=== PATIENT | male | born 1950 | race Caucasian/White ===

== ENCOUNTER → 2016-05-04 | Outpatient (CLI) | payer BC ==
[~2016-05-04] MED LIST: ASPI81TA28 PO; CHOL400T PO; IRBE1TAB48 PO; MULT-506 PO; NRV/5 PO
== END | disposition home or self-care (01) ==
LOC: C.PATHSPEC 12:05
PROVIDERS: ATTEND Urology
DX: R97.20 Elevated prostate specific antigen [PSA] (principal)

== ENCOUNTER → 2016-12-02 | Outpatient (CLI) | payer BC ==
[~2016-12-02] MED LIST changes: -ASPI81TA28 PO; -CHOL400T PO; -MULT-506 PO
[2016-12-02 11:02] LABS: BASO % 0.4 %; BASO ABS # 0.02 K/uL (0-0.2); COMPLETE YES; EOS % 9.4 %; HEMATOCRIT 45.5 % (42-52); IG% 0.4 %; LYMPH % 45.8 %; LYMPH ABS # 2.14 K/uL (1.2-3.4); MEAN CORPUSCULAR HEMOGLOBIN 32.7 pg (25-34); MEAN CORPUSCULAR HGB CONC 37.1 g/dl (32-36); MONO % 8.4 %; NEUT % 35.6 %; PLATELET COUNT 150 K/uL (130-400); RED BLOOD COUNT 5.17 M/uL (4.7-6.1); WHITE BLOOD COUNT 4.67 K/uL (4.8-10.8)
[2016-12-02 11:40] LABS: ALT/SGPT 103 U/L (12-78); AST/SGOT 41 U/L (15-37); BLOOD UREA NITROGEN 20 mg/dl (7-18); BUN/CREATININE RATIO 17.9 (10-20); CARBON DIOXIDE 24 mmol/L (21-32); CHLORIDE 108 mmol/L (98-107); GLUCOSE 108 mg/dl (70-99); POTASSIUM 4.3 mmol/L (3.5-5.1); SODIUM 138 mmol/L (136-145)
[2016-12-02 11:45] LABS: ALB/GLOB RATIO 1.5 (0.9-2); ALKALINE PHOSPHATASE 63 U/L (45-117); CHOLESTEROL 146 mg/dl (0-200); CHOLESTEROL/HDL RATIO 4.3; HDL CHOLESTEROL 34 mg/dl; LDL CHOLESTEROL CALCULATED 78 mg/dl; TRIGLYCERIDES 171 mg/dl (0-150); VERY LOW DENSITY LIPOPROT CALC 34 mg/dl
[2016-12-02 12:36] LABS: ESTIMATED AVERAGE GLUCOSE 111 mg/dl; HA1C FLAG Normal (Normal)
== END | disposition home or self-care (01) ==
LOC: C.LABBC 08:23
PROVIDERS: ATTEND Internal Medicine
DX: C61 Malignant neoplasm of prostate (principal); Z11.59 Encounter for screening for other viral diseases; E88.81 Metabolic syndrome and other insulin resistance

== ENCOUNTER → 2016-12-09 | Outpatient (CLI) | payer BC | END | disposition home or self-care (01) | LOC: C.LABBC 08:12 | PROVIDERS: ATTEND Internal Medicine | DX: R79.89 Other specified abnormal findings of blood chemistry (principal) ==

== ENCOUNTER → 2016-12-13 | Outpatient (CLI) | payer BC | END | disposition home or self-care (01) | LOC: C.LABBC 08:16 | PROVIDERS: ATTEND Internal Medicine | DX: R79.89 Other specified abnormal findings of blood chemistry (principal) ==

== ENCOUNTER → 2016-12-17 | Outpatient (CLI) | payer BC ==
--- NOTE | 2016-12-17 10:45 | DIAGNOSTIC IMAGING REPORT ---
(LIVER) ABDOMEN LIMITED CLINICAL HISTORY: R79.89 Abnormal liver function [id number] abnormal liver function tests TECHNIQUE: Ultrasound COMPARISON STUDY: None FINDINGS: Fatty infiltration of liver. Normal gallbladder. No shadowing gallstones. Common bile duct 5 mm. Unremarkable pancreas. Right kidney is negative for hydronephrosis. IMPRESSION: Fatty infiltration of liver. Otherwise negative study. The above report was generated using voice recognition software. It may contain grammatical, syntax or spelling errors. Electronically signed by: Erick Marin M.D. 12/17/2016 10:44 AM Dictated Date/Time: 12/17/2016 10:43 AM
== END | disposition home or self-care (01) ==
LOC: C.ULTRBC 08:41
PROVIDERS: ATTEND Internal Medicine
DX: R79.89 Other specified abnormal findings of blood chemistry (principal)

== ENCOUNTER → 2017-01-24 | Outpatient (CLI) | payer BC ==
[2017-01-24 11:29] LABS: BLOOD UREA NITROGEN 17 mg/dl (7-18); BUN/CREATININE RATIO 16.5 (10-20); CREATININE 1.03 mg/dl (0.60-1.40)
== END | disposition home or self-care (01) ==
LOC: C.LABBC 08:44
PROVIDERS: ATTEND Urology
DX: C61 Malignant neoplasm of prostate (principal)

== ENCOUNTER → 2017-06-21 | Outpatient (CLI) | payer BC | END | disposition home or self-care (01) | LOC: C.PATHSPEC 17:58 | PROVIDERS: ATTEND Urology | DX: C61 Malignant neoplasm of prostate (principal); N42.32 Atypical small acinar proliferation of prostate; R97.20 Elevated prostate specific antigen [PSA] ==

== ENCOUNTER 2019-01-30 06:20 | Inpatient (IN) ==
--- NOTE | 2019-01-22 13:15 | PAT Medication Instructions ---
Medication Instructions Date of Service January 22, 2019 Home Medications alfuzosin 10 mg PO QDD amlodipine 5 mg PO QAM aspirin [Aspirin Low Dose] 81 mg PO QAM cholecalciferol (vitamin D3) [Vitamin D3] 5,000 unit PO QAM irbesartan 150 mg PO QAM ASK your prescriber and surgeon aspirin [Aspirin Low Dose] 81 mg PO QAM DO NOT take the morning of surgery cholecalciferol (vitamin D3) [Vitamin D3] 5,000 unit PO QAM irbesartan 150 mg PO QAM Take morning of surgery With a small sip of water, OTHERWISE NOTHING TO EAT OR DRINK AFTER MIDNIGHT: amlodipine 5 mg PO QAM Take evening before surgery alfuzosin 10 mg PO QDD Other Notes If you have any questions please call us at [phone] or [phone] or [phone] or [phone]
--- NOTE | 2019-01-23 08:23 | Anesthesiology Consultation ---
Date of Service January 23, 2019 Assessment & Plan (1) Encounter for pre-operative examination: Chart Review Chart Review: Pending: Refer to Additional Notes / Consult section (pending preop testing (labs, EKG, CXR)) and Patient seen in Pre Admission Testing Teaching & Discussion Pre-Anesthesia Teaching/Discussion Notes: Instructed NPO after midnight before surgery,except medications with 15 cc of water. Medication instructions provid ed according to the PAT guidelines. History Surgery Operation Date: 01/30/19 10:40 Proposed Procedures p Right Total Knee Arthroplasty - Robe Torrez MD Height/Weight Height: 5 ft 10 in Weight: 112.8 kg Allergies Allergy/AdvReac Type Severity Reaction Status Date / Time KAREN INHIBATORS Allergy Unknown RASH, Uncoded 01/16/19 10:25 "TICKLE IN THROAT" Medications Home Medications Medication Instructions Recorded Confirmed Last Taken alfuzosin 10 mg PO QDD 01/16/19 01/16/19 Unknown amlodipine 5 mg PO QAM 01/16/19 01/16/19 Unknown aspirin [Aspirin Low Dose] 81 mg PO QAM 01/16/19 01/16/19 Unknown cholecalciferol (vitamin D3) 5,000 unit PO QAM 01/16/19 01/16/19 Unknown [Vitamin D3] irbesartan 150 mg PO QAM 01/16/19 01/16/19 Unknown Past Medical History Medical History Hypertension Obesity Osteoarthritis Prostate cancer under surveillance Urinary retention Exercise / Class Metabolic Activity III < 4 Walking/Shop/Light housework Past Surgical History Surgical History Hx of anterior cruciate ligament surgery BOTH KNEES Hx of arthroscopic knee surgery RIGHT Hx of colonoscopy Hx of prostate biopsy X2 Hx of tonsillectomy Past Anesthesia History No Hx of Anesthesia Complications and No Family Hx of Anesthesia Complications History of PONV No Hx of PONV and Hx of Motion Sickness (occasional) Social History Smoking Status: Never smoker Do You Dip or Chew Tobacco: No Hx Alcohol Use: Yes alcohol intake frequency: holidays/special occasions only Hx Substance Use: No Review of Systems URI symptoms significantly improved. Patient denies chest pain, shortness of breath, reflux, wheezing, palpitations. Physical Exam Vital Signs VITALS BP 133/82 P 73 TEMP 98.2 SP02 95%RA RESP 16 PHYSICAL Full neck and c-spine range of motion. Full TMJ range of motion. TMD 3.5 finger breaths Mallampati Score 3 Dentition: intact, crowns on molars Lungs: clear throughout to auscultation Cardiac: regular rate and rhythm, no murmurs noted Spine: normal Carotid arteries: negative bruit Extremities: no edema
--- NOTE | 2019-01-23 08:42 | XRay Report ---
XR chest Pre-admission PA/Lat CLINICAL HISTORY: Preoperative evaluation. COMPARISON STUDY: No previous studies for comparison. FINDINGS: Lung volumes are at the lower limits of normal. Lungs are clear. There is no pneumothorax o r pleural effusion. Mild cardiomegaly is noted. Mediastinal contours are normal. There is no evidence for pulmonary edema. Incidental note is made of mild thoracolumbar spine scoliosis. IMPRESSION: 1. No acute cardiopulmonary findings. 2. Mild cardiomegaly. Electronically signed by: Regis Linn M.D. 01/23/2019 8:41 AM
[2019-01-23 10:53] LABS: Basophils # (auto) 0.03 K/uL (0-0.2); Basophils % (auto) 0.3 %; Eosinophils # (auto) 0.55 K/uL (0-0.5); Eosinophils % (auto) 5.5 %; Hematocrit (blood only) 44.6 % (42-52); Hemoglobin 16.2 g/dL (14.0-18.0); Immature Granulocytes # (auto) 0.02 K/uL (0.00-0.02); Immature Granulocytes % (auto) 0.2 %; Lymphocytes # (auto) 3.61 K/uL (1.2-3.4); Lymphocytes % (auto) 36.2 %; Mean Corpuscular Hemoglobin 32.1 pg (25-34); Mean Corpuscular Hgb Conc 36.3 g/dL (32-36); Mean Corpuscular Volume 88.3 fL (80-100); Mean Platelet Volume 9.6 fL (7.4-10.4); Monocytes # (auto) 0.79 K/uL (0.11-0.59); Monocytes % (auto) 7.9 %; Neutrophils # (auto) 4.97 K/uL (1.4-6.5); Neutrophils % (auto) 49.9 %; Platelet Count 170 K/uL (130-400); RDW Coefficient of Variation 12.8 % (11.5-14.5); Red Blood Count 5.05 M/uL (4.7-6.1); White Blood Count 9.97 K/uL (4.8-10.8)
[2019-01-23 11:07] LABS: BUN Creatinine Ratio 23.2 (10-20); C Reactive Protein 1.89 mg/dl (0-0.29); Creatinine Clr Calc Pharmacy 87.9 ml/min; Est GFR (African American) 86.3; Est GFR (Non-African American) 74.5; Partial Thromboplastin Time 26.8 Seconds (21.0-31.0); Potassium 4.3 mmol/L (3.5-5.1); Prothrombin Time 10.3 Seconds (9.0-12.0)
--- NOTE | 2019-01-24 22:27 | History and Physical Report ---
DATE OF ADMISSION: 01/30/2019 CHIEF COMPLAINT: Right knee pain, discomfort and swelling. HISTORY OF PRESENT ILLNESS: This is a 68-year-old gentleman who is well known to me from previously treating him for some right knee DJD and postsurgical arthritis over the past 4 years. This all dates back to injuries many years ago. Both of his knees reconstructed with ACL reconstruction with the right knee done in 1993 and the left one done in 1997, all was done in [facility]. He did have a history of previous open knee surgery in the right side before that. He has continued to have persistent progressive right knee pain and discomfort. It has aggravated and it takes a couple weeks for him to calm down. It swells up regularly. He describes global pain. The more he walks, the more it hurts. He has been through extensive conservative treatment including steroid shots and viscosupplementation, which have not been helpful lately. He now would like to have his right knee fixed. PAST MEDICAL HISTORY: 1. Hypertension. 2. Sleep apnea. 3. Obesity with BMI of 35.7. 4. BPH/prostate cancer. PAST SURGICAL HISTORY: Previous surgeries include: 1. Right knee open meniscectomy prior to 1993. 2. Right knee ACL reconstruction with bone patella tendon bone autograft in 1993. 3. Left knee ACL reconstruction in 1997. ALLERGIES: None. CURRENT MEDICINES: Include: 1. Amlodipine 5 mg. 2. Irbesartan 150 mg a day. SOCIAL HISTORY: A 68-year-old male. He is . No significant smoking history. One drink per week. FAMILY HISTORY: Noncontributory. REVIEW OF HISTORY: Negative for diabetes, neurologic problems, vascular problems or bleeding disorders. Denies any chest pain or shortness of breath. No history of DVT or PE. No known bleeding problems. PHYSICAL EXAMINATION: GENERAL: Reveals a healthy, pleasant, middle-aged male. Looks to be in pretty good health. HEENT: Benign. NECK: Supple, no lymphadenopathy. LUNGS: Clear to auscultation. HEART: Regular rate and rhythm. ABDOMEN: Soft, nontender, nondistended. EXTREMITIES: Grossly neurovascularly intact except as follows: Examination of the right knee reveals the patient walks with a slight bit of a limp. He has got well-healed incisions around his right knee from previous surgeries. He has got a small to moderate sized knee effusion. Range of motion about 10 degrees short of full extension and about 110 degrees of flexion. There is no clinical instability. His knee is pretty stiff. No pain with hip motion. X-RAYS: X-rays of the right knee reviewed. It shows evidence of ACL reconstruction with interference screws proximally and distally. He has got tricompartment disease diffusely. He does have complete loss of his lateral joint space. He has got osteophytes in all 3 compartments. ASSESSMENT: A 68-year-old male with a history of multiple knee surgeries in the past with advanced right knee tricompartment DJD. He has failed conservative treatment and would like to have his right knee fixed. PLAN: We will take him to the operating room and do right total knee replacement. We may need to remove some of the hardware. The risks and benefits of total knee replacement were explained to the patient including but not limited to DVT, PE, , infection, neurological injury, vascular injury, bleeding problem, pain, limited range of motion, stiffness, failure to relieve symptoms, incomplete relief of symptoms, need for further surgery in the future, fracture, leg length inequality, nerve palsy, etc. The patient understands and desires to proceed. Informed consent was obtained. Due to his history of multiple surgeries, we will likely put some vancomycin in cement. We may have to remove some interference screws and will be prepared to do that. As far as discharge plans, he is planning to be discharged home using [facility] home health program.
[~2019-01-30 06:20] MED LIST changes: +ACETAMINOPHEN 500 MG TAB PO SCH; +BUPIVACAINE LIPOSOME/PF 266 MG, BUPIVACAINE/EPINEPHRINE 50 ML, SODIUM CHLORIDE 0.9% 30 ... INFIL SCH; +CEFAZOLIN 2000MG 2,000 MG/15 ML SYR IV SCH; +FAMOTIDINE 20 MG TAB PO SCH; +GABAPENTIN 300 MG CAP PO SCH; -IRBE1TAB48 PO; +LR 500ML BOLUS, THEN 15ML/HR IV SCH; +LR 60ML/HR IV SCH; +METOCLOPRAMIDE HCL 10 MG TABLET PO SCH; -NRV/5 PO; +SCOPOLAMINE 1.5 MG TDSY TD SCH
[2019-01-30] MEDS ORDERED: TRANEXAMIC ACID 1,000 MG **IV Intra-op IV SCH (06:30)
[2019-01-30] MEDS ORDERED: BUPIVACAINE 0.5 % 5 MG/1 ML PF 10ML VIAL ONE (06:32)
[2019-01-30] MEDS ORDERED: ROPIVACAINE 0.5% 5 MG/ML 30 ML VIAL ONE (06:32)
--- NOTE | 2019-01-30 06:51 | History & Physical Bridge Note ---
Date of Service January 30, 2019 History & Physical Bridge Note I have examined the patient, reviewed the History & Physical and in the interval since the performance of the History & Physical I have noted the following changes of clinical significance: no changes noted
[2019-01-30] MEDS ORDERED: fentaNYL citrate 100 MCG/2 ML VIAL ONE (07:31)
[2019-01-30] MEDS ORDERED: MIDAZOLAM HCL 1 MG/ML 2ML VIAL ONE ×2 (07:31→09:30)
[2019-01-30] MEDS ORDERED: HYDROmorphone INJ 1 MG/ML SYRINGE IV PRN (08:19)
[2019-01-30] MEDS ORDERED: ePHEDrine sulfate 50 MG/ML AMP IV PRN (08:19)
[2019-01-30] MEDS ORDERED: ATROPINE SULFATE 0.1 MG/ML 10ML SYR IV PRN (08:19)
[2019-01-30] MEDS ORDERED: KETOROLAC 30 MG/ML VIAL IV PRN (08:19)
[2019-01-30] MEDS ORDERED: ONDANSETRON INJ 2 MG/ML 2 ML VIAL IV PRN ×2 (08:19→11:55)
[2019-01-30] MEDS ORDERED: BUPIVACAINE LIPOSOME 1.3% 266 MG/20 ML VIAL ONE (08:40)
[2019-01-30] MEDS ORDERED: BACITRACIN INJ 50,000 UNIT VIAL ONE (08:40)
[2019-01-30] MEDS ORDERED: SODIUM CHLORIDE 0.9% PF 50 ML VIAL ONE (08:40)
[2019-01-30] MEDS ORDERED: BUPIVACAINE/EPINEPHRINE 0.25% 1:200,000 30 ML VIAL ONE (08:40)
[2019-01-30] MEDS ORDERED: VANCOMYCIN HCL 1000MG/20ML VIAL ONE (09:01)
[2019-01-30] MEDS ORDERED: KETAMINE HCL INJ 50 MG/ML 10 ML VIAL ONE (09:19)
[2019-01-30] MEDS ORDERED: ONDANSETRON INJ 2 MG/ML 2 ML VIAL ONE (09:23)
[2019-01-30] MEDS ORDERED: PROPOFOL IV EMULSION 10 MG/ML 20 ML VIAL IV ONE ×2 (09:23→10:25)
[2019-01-30] MEDS ORDERED: GLYCOPYRROLATE 0.2 MG/ML VIAL ONE (09:23)
--- NOTE | 2019-01-30 11:02 | Post Operative Brief Note ---
PG Immediate Post Op with CF Date of Surgery January 30, 2019 Pre & Post Diagnosis Operation Date: 01/30/19 08:50 Pre-Op Diagnosis: Right Knee Advanced Degenerative Joint Disease Post-Op Diagnosis: Right Knee Advanced Degenerative Joint Disease I identified the patient and participated in the time-out.: Yes Procedure Operation Date: 01/30/19 08:50 Actual Procedures p Right Total Knee Arthroplasty with Removal of Hardware (Right Tibial Screw)(Right) - Robe Torrez MD Surgeon Robe Torrez MD Director Of Music None Estimated Blood Loss 50 Findings Consistent with Post-Op Diagnosis Fluids 700 cc Specimens Specimen Description: A: Right Knee bone & Tissue right tibial screw and washer that were removed was not sent to lab, no defects or mechanical failure, per surgeon Drains St Catheter (A [address] catheter was inserted by Alex Peterson RN, without difficulty, clear yellow urine obtained, output to be monitored by Anesthesia.) Anesthesia Type Spinal MAC Complications none Disposition Accompanied Patient To Recovery: Yes Disposition: Recovery Room
--- NOTE | 2019-01-30 11:31 | XRay Report ---
XR knee RT 1 or 2V routine CLINICAL HISTORY: Postoperative evaluation. COMPARISON: Knee radiographs December 25, 2018. FINDINGS: Alignment of the total right knee arthroplasty is anatomic. There is no fracture. There ar e skin mirna. A distal femoral screw from previous ACL reconstruction is noted. IMPRESSION: Expected findings following total right knee arthroplasty. Electronically signed by: Regis Linn M.D. 01/30/2019 11:29 AM
--- NOTE | 2019-01-30 11:37 | Operative Report ---
DATE OF OPERATION: 01/30/2019 SURGEON: Robe Torrez MD SYSTEM ADMINISTRATOR: None. PREOPERATIVE DIAGNOSES: 1. Retained hardware, right knee. 2. Right knee degenerative joint disease. POSTOPERATIVE DIAGNOSES: 1. Retained hardware, right knee. 2. Right knee degenerative joint disease. PROCEDURE PERFORMED: 1. Right cemented posterior stabilized total knee arthroplasty. 2. Right knee deep hardware removal. COMPLICATIONS: None. ESTIMATED BLOOD LOSS: 50 mL. FLUID REPLACEMENT: 700 mL crystalloid fluid replacement. TOURNIQUET TIME: 68 minutes at 300 mmHg. ANESTHESIA: Spinal with adductor canal block. DRAINS: None. SPECIMENS: Right knee sent for pathology. OPERATIVE INDICATIONS: The patient is a 68-year-old fairly active gentleman who has had a long history of knee problems. He had his right knee open meniscectomy many years ago. He then underwent an ACL reconstruction in 1993 in [place]. Over the past 20 years, he has developed increased pain, discomfort and stiffness in his knee. He has been through extensive conservative treatment which became less successful over time. He elected to proceed with total knee arthroplasty. OPERATIVE FINDINGS: Operative findings revealed advanced right knee DJD. He had grade 4 [id number]-edvw disease in all 3 compartments, most severe laterally. He had severe eburnation laterally as well. A moderate sized joint effusion. He had retained hardware from the ACL reconstruction. OPERATIVE IMPLANTS: Operative implants consisted of: 1. Biomet Vanguard size 67.5 right posterior stabilized femoral component. 2. Biomet size 75 tibial tray. 3. A 12 mm posterior stabilized polyethylene insert. 4. A 31 x 8 all poly patella. OPERATIVE PROCEDURE: The patient was taken to the operating room, identified and placed on the operating table in supine position. All contact areas were appropriately padded. IV antibiotics provided by anesthesia team. Spinal anesthetic and adductor canal block had been provided in the holding area. Mahoney catheter was placed in sterile fashion. Right thigh tourniquet was then placed and the right lower extremity was then prepped and draped in the usual sterile fashion. The right leg was elevated and exsanguinated with an Esmarch and tourniquet was placed at 300 mmHg. An anterior approach to the right knee was then performed using a longitudinal incision incorporating the previous incision for the ACL reconstruction tendon autograft site. Sharp dissection was carried through subcutaneous tissue down to the level of the extensor mechanism. Medial parapatellar arthrotomy incision was made. Some subperiosteal dissection was carried out medially. We did run into the screw and was clearly going to be in our way, so we removed the screw and the washer from the tibia. We also removed the additional sutures which were prominent. The fat pad was resected from beneath the patellar tendon. The lateral patellofemoral ligament was released. The patella was subluxated laterally and the knee was flexed. The osteophytes were taken off the distal femur. What was left at the ACL and the PCL were then released from the distal femur and the tibia subluxated anteriorly. External tibial alignment jig was then placed in the anterior face of the tibia and adjusted 12 mm medially. Proximal tibial cut was made to remove about 3 mm of bone from the medial side. Tibia sized to a size 75. Some osteophytes were taken off medial and posteromedially. Attention was then drawn to the femur. The distal femur was entered with a sharp drill bit. Intramedullary canal was suctioned. A right 5-degree valgus cutting guide was placed and distal femoral cutting block was pinned in place. The distal femoral cut was made to take an additional 3 mm of bone off distal femur. I then brought the knee out in extension and did a limited release of the IT band and posterolateral capsule in order to equalize the extension gap. Great care was taken to protect the peroneal nerve at all times. The knee was flexed. The femur was then sized to a size 67.5. We did downsize this about half size. The AP cutting block was pinned parallel to the epicondylar axis, which was 3 degrees of external rotation. The anterior cut, anterior chamfer cut, posterior cut, posterior chamfer cuts were made. Box cutting guide was placed and adjusted slightly lateral and box cut was made. The knee was flexed. The remnants of the medial and lateral menisci were excised. The osteophytes were taken off the posterior aspect of the femur. I did release the popliteus in order to equalize the flexion gap. The trial femoral component was placed. The tibial tray was pinned in maximum external rotation. I also did curette out the tibial ACL hole which was filled with soft tissue. I then trialed the knee and the 12 mm insert fit most appropriately. Attention was then drawn to patella. The patella thickness measured 25 mm in thickness, was cut down to 14. It was cleaned of all soft tissues. The Lug holes were drilled for the 31 patella. Lateral osteophyte was removed. Patella button was placed. Knee was taken through range of motion, patella tracked nicely with no thumbs test. Attention was then drawn toward placing the permanent components. All trial components were removed. Bone plug was placed in the distal femur to limit blood loss. A double batch of Palacos G cement was mixed. I did add an additional gram of vancomycin due to his history of multiple surgeries on this knee. The Biomet Vanguard size 67.5 right posterior stabilized femoral component, size 75 tibial tray, a 12 mm posterior stabilized polyethylene insert, and a 31 x 8 all poly patella then cemented in place. Knee was brought out into full extension until cement hardened. A final cement check was then performed. Pericapsular tissues were injected with a total of 100 mL of combination of 20 mL of Exparel, 30 mL of normal saline, 50 mL of 0.25% Marcaine with epinephrine. The patient did receive 1 gram of tranexamic acid. The tourniquet was then let down for a tourniquet time 68 minutes. Hemostasis was assured with use of electrocautery. The extensor mechanism was then closed with combination of #1 PDS suture and #1 Vicryl suture in a [id number] fashion. Extensor mechanism was checked and found to be intact and subcutaneous tissue was then closed with #2 Dexon suture in a buried interrupted fashion. Skin was closed with skin mirna. Leg was then cleaned, dried and a sterile dressing of Xeroform, 4 x 4, sterile cast padding and Harmeet bandage were applied. The patient then transferred to the recovery room in stable condition. The patient tolerated the procedure well with no complication. All needle and sponge counts were correct at the end of the operation. I attest to the content of the Intraoperative Record and any orders documented therein. Any exception s are noted below.
[2019-01-30] MEDS ORDERED: NALOXONE HCL 0.4 MG/1 ML VIAL/CARP IV PRN (11:55)
[2019-01-30] MEDS ORDERED: TAMSULOSIN HCL 0.4 MG CAP PO PRN (11:55)
[2019-01-30] MEDS ORDERED: MAGNESIUM HYDROXIDE SUSP 30 ML UDC PO PRN (11:55)
[2019-01-30] MEDS ORDERED: ALUMINUM/MAGNESIUM SUSP 30 ML UDC PO PRN (11:55)
[2019-01-30] MEDS ORDERED: METOCLOPRAMIDE HCL INJ 5 MG/ML 2 ML VIAL IV PRN (11:55)
[2019-01-30] MEDS ORDERED: BISACODYL 10 MG SUPP PR PRN (11:55)
--- NOTE | 2019-01-30 12:23 | Anesthesiology Progress Note ---
Date of Service January 30, 2019 Anesthesia Post Procedure Vital Signs Vital Signs: Temp Pulse Pulse Resp BP Pulse Ox 01/30/19 11:30 36.4 C L 63 15 138/81 96 01/30/19 11:20 80 21 140/83 92 01/30/19 11:10 81 20 139/82 95 01/30/19 11:02 36.0 C L 93 H 14 125/80 95 01/30/19 06:42 36.8 C 70 18 164/94 H 95 Pain Intensity Right Knee: Pain Intensity: 5 Transfer of Care Handoff Completed per policy Notes Mental Status: alert / awake / arousable Patient Amnestic to Procedure: Yes Nausea / Vomiting: adequately controlled Pain: adequately controlled Airway Patency, RR, SpO2: stable & adequate BP & HR: stable & adequate Hydration State: stable & adequate Anesthetic Complications: no major complications apparent
[2019-01-30] MEDS: HYDROmorphone INJ 0.5 MG/0.5 ML SYR IV PRN (12:33)
[2019-01-30] MEDS: SODIUM CHLORIDE 0.9% 1000ML 1,000 ML IV SCH ×2 (12:33→18:44)
[2019-01-30] MEDS: ACETAMINOPHEN 500 MG TAB PO SCH ×2 (12:57→22:08)
[2019-01-30] MEDS: KETOROLAC TROMETHAMINE 15 MG/ML VIAL IV SCH ×2 (12:57→18:39)
[2019-01-30] MEDS: OXYCODONE HCL IR 5 MG TAB (IMMEDIATE RELEASE) PO PRN ×2 (13:17→18:38)
[2019-01-30] MEDS ORDERED: TRANEXAMIC ACID 1,000 MG in 0.9 % SODIUM CHLORIDE 100 ML IV SCH (17:03)
[2019-01-30] MEDS: ASCORBIC ACID 500 MG TAB PO SCH ×2 (17:03→22:05)
[2019-01-30] MEDS: ALFUZOSIN HCL 10 MG TAB PO SCH (17:03)
[2019-01-30] MEDS: FERROUS GLUCONATE 324 MG TAB PO SCH ×2 (17:04→22:04)
[2019-01-30] MEDS: CEFAZOLIN 2000MG 2,000 MG/15 ML SYR IV SCH (17:04)
[2019-01-30] MEDS: CHECK SCOPOLAMINE PATCH PLACEMENT SCH (17:04)
--- NOTE | 2019-01-30 18:43 | Progress Note ---
DATE: 01/30/2019 SUBJECTIVE: A 68-year-old gentleman postop from a right knee replacement and hardware removal. He is doing well. Rates his pain at worse at 6. No chest pain or shortness of breath. Not feeling dizzy or lightheaded. He did okay with some pain medicines. OBJECTIVE: VITAL SIGNS: Temperature is 36.7. Vital signs stable. GENERAL: Shows a pleasant, middle-aged female. He is sitting up in bed and talking to his . He looks comfortable. LUNGS: Clear to auscultation. HEART: Has a regular rate and rhythm. ABDOMEN: Soft, nontender, nondistended. EXTREMITIES: Grossly neurovascularly intact except as follows: Examination of the right lower extremity reveals the leg to be well aligned. Dressing is clean, dry, and intact. He can dorsiflex and plantarflex his foot appropriately. He is neurologically intact. X-RAYS: X-rays of the right knee from recovery room reviewed. It shows right cemented posterior stabilized total knee arthroplasty. Components are in good position. No signs of problems. This is a slightly rotated film. ASSESSMENT: A 68-year-old gentleman postop from right knee replacement, doing well. His pain is controlled. He is neurologically intact. PLAN: 1. DVT prophylaxis including thigh-high TEDs, SCDs, and aspirin twice daily. 2. PT/OT. Weight bear as tolerated. Right total knee protocol. 3. Pain control, doing pretty well with current pain regimen. 4. IV antibiotics x24 hours. 5. Disposition: Plan to discharge to home with some home health once adequately recovered and medically stable.
[2019-01-30] MEDS: DOCUSATE SODIUM 100 MG CAP PO SCH (22:06)
[2019-01-30] MEDS: ASPIRIN 81 MG ECTAB PO SCH (22:07)
[2019-01-30] MEDS: SENNA 8.6 MG TAB PO SCH (22:07)
[2019-01-30] MEDS: TAPENTADOL HCL ER 50 MG TABCR PO SCH (22:10)
[2019-01-31] MEDS: CEFAZOLIN 2000MG 2,000 MG/15 ML SYR IV SCH (00:24)
[2019-01-31] MEDS: CHECK SCOPOLAMINE PATCH PLACEMENT SCH (00:25)
[2019-01-31] MEDS: KETOROLAC TROMETHAMINE 15 MG/ML VIAL IV SCH ×4 (00:25→18:51)
[2019-01-31 05:25] LABS: Hematocrit (blood only) 37.8 % (42-52); Hemoglobin 13.5 g/dL (14.0-18.0); Mean Corpuscular Hemoglobin 31.4 pg (25-34); Mean Corpuscular Hgb Conc 35.7 g/dL (32-36); Mean Corpuscular Volume 87.9 fL (80-100); Mean Platelet Volume 8.8 fL (7.4-10.4); Platelet Count 159 K/uL (130-400); RDW Coefficient of Variation 12.6 % (11.5-14.5); RDW Standard Deviation 40.5 fL (36.4-46.3); White Blood Count 12.92 K/uL (4.8-10.8)
[2019-01-31 05:51] LABS: Calcium 8.2 mg/dl (8.5-10.1); Creatinine Clr Calc Pharmacy 83.3 ml/min; Est GFR (African American) 81.5; Est GFR (Non-African American) 70.4; Potassium 4.7 mmol/L (3.5-5.1)
[2019-01-31] MEDS: ACETAMINOPHEN 500 MG TAB PO SCH ×3 (06:03→22:25)
--- NOTE | 2019-01-31 08:13 | Anesthesiology Progress Note ---
Date of Service January 31, 2019 Anesthesia Post Procedure Vital Signs Vital Signs: Temp Pulse Pulse Resp BP Pulse Ox 01/31/19 07:58 37.3 C 71 18 125/74 94 01/31/19 03:17 36.8 C 71 16 125/78 95 01/30/19 23:30 36.8 C 61 15 117/71 97 01/30/19 20:23 68 19 126/75 92 01/30/19 19:38 36.8 C 69 17 96/58 L 95 01/30/19 17:23 65 19 124/77 94 01/30/19 15:53 36.7 C 60 17 125/78 97 01/30/19 14:25 57 L 16 135/77 95 01/30/19 12:45 36.5 C 72 16 136/88 96 01/30/19 11:30 36.4 C L 63 15 138/81 96 01/30/19 11:20 80 21 140/83 92 01/30/19 11:10 81 20 139/82 95 01/30/19 11:02 36.0 C L 93 H 14 125/80 95 Pain Intensity Right Knee: Pain Intensity: 5 Notes Mental Status: alert / awake / arousable Nausea / Vomiting: adequately controlled Pain: adequately controlled Airway Patency, RR, SpO2: stable & adequate BP & HR: stable & adequate Hydration State: stable & adequate Neuraxial Anesthesia: was administered and sensory block resolved Anesthetic Complications: no major complications apparent and Pt Satisfied with anesthetic care
[2019-01-31] MEDS: TAPENTADOL HCL ER 50 MG TABCR PO SCH ×2 (08:49→21:06)
[2019-01-31] MEDS: OXYCODONE HCL IR 5 MG TAB (IMMEDIATE RELEASE) PO PRN ×4 (08:49→22:25)
[2019-01-31] MEDS: MULTIVITAMIN TAB PO SCH (08:51)
[2019-01-31] MEDS: ASCORBIC ACID 500 MG TAB PO SCH ×2 (08:51→17:51)
[2019-01-31] MEDS: FERROUS GLUCONATE 324 MG TAB PO SCH ×2 (08:51→17:51)
[2019-01-31] MEDS: ASPIRIN 81 MG ECTAB PO SCH ×2 (08:52→21:05)
[2019-01-31] MEDS: DOCUSATE SODIUM 100 MG CAP PO SCH ×2 (08:52→21:06)
[2019-01-31] MEDS: AMLODIPINE BESYLATE 5 MG TAB PO SCH (08:53)
[2019-01-31] MEDS: IRBESARTAN 150 MG TAB PO SCH (08:53)
[2019-01-31] MEDS: HYDROmorphone INJ 0.5 MG/0.5 ML SYR IV PRN (11:38)
[2019-01-31] MEDS: CHOLECALCIFEROL 1,000 UNITS TAB PO SCH (12:40)
--- NOTE | 2019-01-31 14:02 | Progress Note ---
DATE: 01/31/2019 SUBJECTIVE: A 68-year-old gentleman postop day 1 from right knee replacement and hardware removal. He is doing okay. He had a pretty rough morning pain porter, but doing better now after they gave him some IV meds. No chest pain or shortness of breath. Not feeling dizzy or lightheaded. OBJECTIVE: VITAL SIGNS: Temperature 37.1. Vital signs stable. GENERAL: Shows a pleasant, middle-aged male. He is sitting up in his bedside chair, talking to his . He looks pretty comfortable. EXTREMITIES: Examination of the right leg reveals the dressing to be clean, dry, and intact. He can dorsiflex and plantarflex his foot appropriately. He struggles doing a straight leg raise. He is neurologically intact. LABORATORY DATA: Hemoglobin 13.5, hematocrit 37.8, white cell count 12.92. Electrolytes are stable. ASSESSMENT: A 68-year-old gentleman postoperative day 1 from right knee replacement and hardware removal, doing reasonably well. Pain is not out of the ordinary at this point. PLAN: 1. DVT prophylaxis including thigh-high TEDs, SCDs, and aspirin twice a day. 2. PT/OT. Weight bear as tolerated. Right total knee protocol. 3. Pain control, doing pretty well with current pain regimen. 4. Disposition: Plan to discharge to home with some home health once adequately recovered and medically stable.
[2019-01-31] MEDS: ALFUZOSIN HCL 10 MG TAB PO SCH (17:51)
[2019-01-31] MEDS: SENNA 8.6 MG TAB PO SCH (21:06)
[2019-02-01] MEDS: KETOROLAC TROMETHAMINE 15 MG/ML VIAL IV SCH ×2 (00:21→06:04)
[2019-02-01] MEDS: ACETAMINOPHEN 500 MG TAB PO SCH (06:03)
--- NOTE | 2019-02-01 07:38 | Progress Note ---
DATE: 02/01/2019 SUBJECTIVE: A 68-year-old gentleman postop day 2 from right knee replacement. He is doing better this morning. A little bit less pain. He has been ambulating in the hallways. No chest pain or shortness of breath. Not feeling dizzy or lightheaded. OBJECTIVE: VITAL SIGNS: Temperature 37.4. Vital signs stable. GENERAL: Shows a pleasant, middle-aged male. He is sitting up in his bedside chair, looks pretty comfortable. EXTREMITIES: Examination of the right leg reveals the leg to be well aligned. Dressing is clean, dry and intact. Just a trace bit of bloody drainage. Calf is soft and supple. He is neurologically intact. ASSESSMENT: A 68-year-old gentleman postop day 2 from right knee replacement and hardware removal, doing well. Pain is reasonably well controlled. He is neurologically intact. PLAN: 1. DVT prophylaxis including thigh-high TEDs, SCDs, and aspirin twice a day. 2. PT/OT. Weight bear as tolerated. Right total knee protocol. 3. Pain control, doing pretty well with current pain regimen. 4. Disposition: Plan to discharge to home with some home health later today.
[2019-02-01 07:39] VITALS: BP 130/75; TEMP 98.8; O2SAT 95
[2019-02-01] MEDS: CHOLECALCIFEROL 1,000 UNITS TAB PO SCH (08:58)
[2019-02-01] MEDS: AMLODIPINE BESYLATE 5 MG TAB PO SCH (08:59)
[2019-02-01] MEDS: IRBESARTAN 150 MG TAB PO SCH (08:59)
[2019-02-01] MEDS: ASPIRIN 81 MG ECTAB PO SCH (08:59)
[2019-02-01] MEDS: TAPENTADOL HCL ER 50 MG TABCR PO SCH (08:59)
[2019-02-01] MEDS: DOCUSATE SODIUM 100 MG CAP PO SCH (08:59)
[2019-02-01] MEDS: MULTIVITAMIN TAB PO SCH (08:59)
[2019-02-01] MEDS: ASCORBIC ACID 500 MG TAB PO SCH (08:59)
[2019-02-01] MEDS: FERROUS GLUCONATE 324 MG TAB PO SCH (08:59)
[2019-02-01] MEDS: OXYCODONE HCL IR 5 MG TAB (IMMEDIATE RELEASE) PO PRN (09:00)
[2019-02-01 11:21] VITALS: PULSE 86
--- NOTE | 2019-02-03 00:52 | Discharge Summary ---
ADMITTING PHYSICIAN AND SURGEON: Dr. Robe Torrez. ADMITTING DIAGNOSES: 1. Retained hardware, right knee. 2. Right knee degenerative joint disease. SURGERY PERFORMED: 1. Removal of hardware from right knee. 2. Right total knee arthroplasty. SECONDARY DIAGNOSES: Hypertension, sleep apnea, obesity, benign prostatic hypertrophy and prostate cancer. CONSULTS: None obtained. HISTORY AND PHYSICAL EXAMINATION: Well documented in the patient's chart. HOSPITAL COURSE: The patient was admitted on 01/30/2019, underwent a total knee arthroplasty as above, tolerated the procedure well. There were no complications. He was transferred to the PACU postoperatively and later to the orthopedic floor for further care. He was given Ancef for antibiotic prophylaxis, MUSTAPHA stockings, SCDs and aspirin for DVT prophylaxis. Hemoglobin, hematocrit and vital signs were monitored during his hospital stay and remained stable, did not require any blood transfusions. There were no complications. On postop day 2, he was tolerating a regular diet, pain was controlled with oral pain medicine and he was participating in physical therapy. On postop day 2, he was discharged home, set up with home health services, was given printed discharge instructions as well as new prescriptions for extra strength Tylenol, aspirin, and oxycodone. Continue home medications, continue physical therapy, weightbearing as tolerated, MUSTAPHA stockings. Follow up approximately 2 weeks postop or sooner if there are any problems or concerns.
== END 2019-02-01 11:58 | disposition home health service (06) | DRG 470 ==
LOC: ASU 06:20 → 3E 11:06